=== PATIENT | female | born 1970 ===

== ENCOUNTER 2017-06-24 10:49 | Emergency (ER) | payer BC ==
--- NOTE | 2017-06-24 11:59 | UC ---
HPI BURN - HPI Summary HPI Summary: Pt presents with for burn to left dorsal hand. She tells me that she was cooking and boiling water, she poured the water out and some went onto her hand. She placed her hand into cool water immediately and then proceeded to urgent care. Denies fever, chills, or recent illness. She also complains of right ankle pain. About 3 weeks ago she was walking and tripping in a hole in the ground, sustained an inversion ankle injury. Did not seek medical treatment. Ankle was painful and had swelling for a "few days", but gradually improved and has not had any troubles since. 2 days ago she was doing yardwork and later that night her ankle became painful and swollen. Is still painful today. He not taken anything for this. Denies numbness/tingling or hx of injury. - History of Current Complaint Chief Complaint: UCSkin Stated Complaint: BURN TO HAND Time Seen by Provider: 06/24/17 11:58 Hx Obtained From: Patient Occurred: Hours Ago Length of Exposure: Seconds Onset Severity: Moderate Current Severity: Moderate Pain Intensity: 8 Pain Scale Used: 0-10 Numeric Location: LUE Character: Scald - Allergy/Home Medications Allergies/Adverse Reactions: Allergies Allergy/AdvReac Type Severity Reaction Status Date / Time Ibuprofen Allergy Swelling Verified 06/24/17 10:53 Of Face,Lips,& Throat Home Medications: Home Medications Cetirizine* [ZyrTEC 10 MG TAB*] 06/24/17 [History] PMH/Surg Hx/FS Hx/Imm Hx Previously Healthy: Yes - Surgical History Surgical History: None - Social History Occupation: Student Lives: With Family Alcohol Use: None Substance Use Type: None Smoking Status (MU): Never Smoked Tobacco Review of Systems Constitutional: Negative Skin: Other - Superficial thermal burn to left hand Respiratory: Negative Cardiovascular: Negative Gastrointestinal: Negative All Other Systems Reviewed And Are Negative: Yes Physical Exam Triage Information Reviewed: Yes Appearance: Well-Appearing, No Pain Distress, Well-Nourished Vital Signs: Initial Vital Signs Temp 97.5 F 06/24/17 10:54 Pulse 76 06/24/17 10:54 Resp 16 06/24/17 10:54 BP 116/80 06/24/17 10:54 Pulse Ox 100 06/24/17 10:54 Vital Signs Reviewed: Yes Neck: Positive: Supple, Nontender, No Lymphadenopathy Respiratory: Positive: Chest non-tender, Lungs clear Cardiovascular: Positive: RRR, No Murmur, Pulses Normal, Brisk Capillary Refill - Left hand and fingers Musculoskeletal: Positive: Strength Intact - Left wrist/hand/fingers. Right ankle/foot, ROM Intact - Left wrist/hand/fingers. Right ankle/foot, No Edema, Other: - TTP over area of erythema on left hand. TTP over right posteromedial malleolus. No obvious bony deformities. Neurological: Positive: Alert, Other: - Sensations intact left hand and all fingers Psychological: Positive: Age Appropriate Behavior Skin: Positive: Other - Left hand: There are 1cm areas of erythema at the base of each finger. The most notable area of erythema is at the base of her left thumb and is ~3cm in diameter. There are no blisters, vesicles, bleeding, drainage, or skin breakdown. Burn Calculation - Terry Formula for Fluid Resuscitation Weight: 45.813 kg 24 -Hour Fluid Replacement: 0.0 Course/Dx Burn - Course Course Of Treatment: Superficial scalding burn to left hand - applied bacitracin and gauze bandage. She is in quite significant pain and has a hive/ edema reaction to ibuprofen and has always avoided other NSAIDs. I advised tylenol as needed for pain, will rx for tylenol with codeine to use at bedtime as needed for increased pain. In regards to her ankle pain. XR was negative for acute process. DEBBIE wrap today and advised RICE. Follow up with an orthopedic provider that is local to them in [place] if pain/swelling persists. - Diagnoses Clinic Provider Diagnoses: Superficial burn to left hand. Right ankle sprain Discharge - Discharge Plan Condition: Stable Disposition: HOME Prescriptions: Acetaminop/Codeine 30 MG TAB* [Tylenol/Codeine 30 MG TAB*] 1 tab PO BEDTIME PRN #5 tab MDD 1 PRN Reason: Pain Patient Education Materials: Ankle Sprain (ED), Superficial Burn (ED) Referrals: No Primary Care Phys,NOPCP [Primary Care Provider] - Additional Instructions: If you develop a fever, SOB, chest pain, new or worsening symptoms - please call your PCP or go to the ED. 1) Use DEBBIE wrap around your ankle, rest, ice, and elevate as needed for pain and /or swelling. If symptoms persist or worsen - please follow up with an Orthopedic provider that is local to you. 2) For the burn on your hand: Please keep the area covered and with neosporin for the next 5-7 days. The area may blister, this is expected and appropriate - please do not pop the blister, it will go down on it's own over time. If the area becomes increasingly painful or has colored discharge, please see your PCP or go to the ED. -----If the blister pops, please keep the area covered with a clean bandage or a band-aid at all times until the skin underneath has healed. 3) May use ice on your hand as tolerated for pain.
--- NOTE | 2017-06-24 12:50 | RAD ---
Indication: Right ankle injury. 3 views of the right ankle demonstrates no fracture. No other bone or joint abnormality is noted. IMPRESSION: No fracture of the right ankle is noted.
== END 2017-06-24 13:15 | disposition home or self-care (01) ==
LOC: UCEAST 10:49
DX: T23.102A Burn of first degree of left hand, unspecified site, initial encounter (principal); X12.XXXA Contact with other hot fluids, initial encounter; Y92.010 Kitchen of single-family (private) house as the place of occurrence of the external cause; S93.401A Sprain of unspecified ligament of right ankle, initial encounter; W18.42XA Slipping, tripping and stumbling without falling due to stepping into hole or opening, initial encounter; Y92.9 Unspecified place or not applicable; Z88.6 Allergy status to analgesic agent
CPT/HCPCS: 99202; G0463